=== PATIENT | female | born 1950 | race Caucasian/White ===

== ENCOUNTER 2017-01-04 06:36 | Inpatient (IN) | payer MEDICARE, MEDICAID ==
[~2017-01-04 06:36] MED LIST: Buffered Lidocaine 1% SYR 3ML* 3 ML/SYR SYRINGE INTRADERM ONE; Dexamethasone IV* 4 MG/ML 1 ML (4 MG) IV SLOW PU ONE; Famotidine IV* 10 MG/ML 2 ML (20 mg) IV ONE
[2017-01-04] MEDS ORDERED: Famotidine IV* 10 MG/ML 2 ML (20 mg) ONE (07:11)
[2017-01-04] MEDS ORDERED: Dexamethasone IV* 4 MG/ML 1 ML (4 MG) ONE (07:12)
[2017-01-04] MEDS ORDERED: ceFAZolin 2 GM PREMIX(*) 2 GM/50 ML BAG IVPB ONE (07:12)
[2017-01-04] MEDS ORDERED: Lidocain 1% EPI 1:100,000 * 30 ML MDV ONE (07:26)
[2017-01-04] MEDS ORDERED: Thrombin 5,000 UNITS* 1 APPLIC KIT - topical use - TOPICAL ONE (07:26)
[2017-01-04] MEDS ORDERED: Bacitracin IV* 50,000 UNITS INJ ONE (07:27)
[2017-01-04] MEDS ORDERED: fentaNYL* 50 MCG/ML 5 ML VIAL (250 MCG VIAL) ONE (07:30)
[2017-01-04] MEDS ORDERED: Midazolam* 1 MG/ML 5 ML VIAL (5 MG) ONE (07:30)
[2017-01-04] MEDS ORDERED: Lidocaine 2% PF * 5 ML VIAL ONE (07:31)
[2017-01-04] MEDS ORDERED: Rocuronium* 10 MG/ML VIAL ONE (07:31)
[2017-01-04] MEDS ORDERED: Propofol* 10 MG/ML 20 ML BTL IV PUSH ONE (07:31)
[2017-01-04] MEDS ORDERED: EPHEDrine (Pressors)* 50 MG/ML VIAL ONE (08:35)
[2017-01-04] MEDS ORDERED: Glycopyrrolate IV* 0.2 MG/ML 1 ML VIAL ONE (08:35)
[2017-01-04] MEDS ORDERED: fentaNYL* 50 MCG/ML 2 ML VIAL (100 MCG VIAL) ONE ×2 (09:01→12:00)
[2017-01-04] MEDS ORDERED: Ondansetron INJ* 2 MG/ML VIAL ONE (09:55)
[2017-01-04] MEDS ORDERED: ceFAZolin 1 GM in Dextrose (*) 2 GM/100 ML BAG IVPB ONE (11:45)
[2017-01-04] MEDS ORDERED: [UNRECOGNIZED DRUG - OTHER] PO PRN (12:17)
[2017-01-04] MEDS ORDERED: Phenylephrine IV* 40 MCG/ML 10 ML SYRINGE ONE (12:31)
[2017-01-04] MEDS ORDERED: HYDROmorphone* 1 MG/ML 1 ML SYR ONE (12:58)
[2017-01-04] MEDS: HYDROmorphone* 1 MG/ML 1 ML SYR IV PRN ×5 (12:59→13:46)
[2017-01-04] MEDS ORDERED: oxyCODONE/Acetamin 5/325 MG* TAB ONE (13:15)
[2017-01-04] MEDS: oxyCODONE/Acetamin 5/325 MG* TAB PO PRN ×2 (13:17→13:19)
[2017-01-04] MEDS: fentaNYL PATCH 25 MCG/HR TRANSDERM SCH (15:11)
--- NOTE | 2017-01-04 15:15 | RAD ---
INDICATION: Decompressive lumbar laminectomy with instrumentation. COMPARISON: Comparison is made with a prior MRI of the lumbar spine from February 13, 2016. Correlation is also made with a CT myelogram from December 01, 2016. TECHNIQUE: 3 cross table lateral portable views of the lumbar spine were obtained in the operating room. FINDINGS: The films demonstrate several surgical instruments located posteriorly and placement of pedicle screws bilaterally at the L1, L2, L3, L4 and L5 levels. IMPRESSION: INTRAOPERATIVE CONTROL FILMS.
[2017-01-04] MEDS: oxyCODONE TAB* 5 MG TAB PO PRN (16:52)
[2017-01-04] MEDS: Acetaminophen TAB* 325 MG PO PRN (16:52)
[2017-01-04] MEDS: HYDROmorphone* 2 MG/ML 1 ML SYR IV SLOW PU PRN ×2 (16:56→20:56)
[2017-01-04] MEDS ORDERED: DULoxetine DR CAP* 60 MG CAP.DR PO SCH (18:00)
[2017-01-04] MEDS: fentaNYL Patch Check Q Shift 1 NOTE SCH (18:39)
[2017-01-04] MEDS: Ondansetron INJ* 2 MG/ML VIAL IV PRN (20:56)
[2017-01-05] MEDS: oxyCODONE TAB* 5 MG TAB PO PRN ×5 (01:51→21:29)
[2017-01-05] MEDS: Ondansetron INJ* 2 MG/ML VIAL IV PRN (03:42)
[2017-01-05] MEDS: HYDROmorphone* 2 MG/ML 1 ML SYR IV SLOW PU PRN (03:42)
[2017-01-05 05:24] LABS: Hematocrit 30 % (35-47); Hemoglobin 9.6 g/dl (12.0-16.0); Mean Corpuscular HGB Conc 32 g/dl (31-36); Mean Corpuscular Hemoglobin 28 pg (27-31); Mean Corpuscular Volume 87 fL (80-97); Mean Platelet Volume 8 um3 (7.4-10.4); Red Blood Count 3.42 10^6/ul (4.0-5.4); Red Cell Distribution Width 14 % (10.5-15); White Blood Count 12.3 10^3/ul (3.5-10.8)
[2017-01-05] MEDS: Diazepam TAB(*) 5 MG PO PRN ×2 (06:00→16:59)
[2017-01-05] MEDS: fentaNYL Patch Check Q Shift 1 NOTE SCH ×2 (06:43→18:51)
--- NOTE | 2017-01-05 07:40 | PN ---
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
--- NOTE | 2017-01-05 08:04 | RAD ---
HISTORY: Postop spinal stenosis COMPARISONS: February 13, 2016 TECHNIQUE: Multiple contiguous axial CT scans were obtained of the lumbar spine without intravenous contrast, with coronal and sagittal multiplanar reformations. FINDINGS: SPINAL CANAL: Evaluation of the central canal is limited on CT technique, and by streak artifact from fusion hardware; however, there is no obvious canalicular mass or epidural hemorrhage. ALIGNMENT: There is a scoliotic curvature of the spine. There is right lateral subluxation of L3 on L4. This is similar to the previous examination. VERTEBRAL BODIES: There are extensive sclerotic active endplate changes at L2-L3 and L3-L4. There is endplate irregularity at these levels, which is presumably degenerative in nature. The patient is status post laminectomy at L3-L4, with fusion rods noted at L1, L2, L3, unilaterally at L4 on the left, and at L5. There is no appreciable hardware failure. The pedicle screws appear to be contained within the cortices of the pedicles of there respective levels. JOINTS: There is diffuse facet hypertrophic change MUSCULATURE: Unremarkable INTERVERTEBRAL DISCS: There is diffuse loss of intervertebral disc height throughout the spine. AXIAL IMAGES: Evaluation is somewhat limited by streak artifact. On axial images, there is moderate right neural foraminal narrowing at L3-L4. Laminectomy defect is noted at L3-L4 SOFT TISSUES: There is atherosclerosis of the abdominal aorta is also ectatic up to 3.1 cm. There is postsurgical change to the soft tissues. A surgical drain is noted. OTHER: None IMPRESSION: 1. STATUS POST LAMINECTOMY AND SPINAL FUSION. 2. THERE IS ASSOCIATED POSTSURGICAL CHANGE TO THE SOFT TISSUES. 3. ATHEROSCLEROSIS WITH ECTASIA OF THE ABDOMINAL AORTA.
[2017-01-05] MEDS: HYDROmorphone PCA* 20 MG/20 ML PCA.SYRING PCA SCH (08:41)
[2017-01-05] MEDS: Folic Acid TAB* 1 MG PO SCH (11:44)
[2017-01-05] MEDS ORDERED: Vitamin E CAP* 400 UNIT PO SCH (12:00)
[2017-01-05] MEDS ORDERED: Vitamin E CAP* 200 UNITS PO SCH (12:00)
[2017-01-05] MEDS ORDERED: Vitamin B Complex TAB PO SCH (12:08)
[2017-01-05] MEDS: Vitamin B Complex TAB PO SCH (12:55)
[2017-01-05] MEDS ORDERED: Nicotine Inhaler* 10 MG AMP INH PRN (20:00)
[2017-01-05] MEDS ORDERED: Mouth Piece, Nicotine* 1 EACH CARTRIDGE INH ONE (20:00)
[2017-01-05] MEDS: DULoxetine DR CAP* 60 MG CAP.DR PO SCH (21:30)
[2017-01-05] MEDS: Nicotine PATCH 21 MG/24 HR* PATCH TRANSDERM SCH (21:30)
[2017-01-06] MEDS ORDERED: NS 0.9% 1000 ML* 1,000 ML IVPB SCH (02:15)
[2017-01-06] MEDS: Acetaminophen TAB* 325 MG PO PRN ×2 (03:41→14:51)
[2017-01-06] MEDS: oxyCODONE TAB* 5 MG TAB PO PRN ×3 (03:41→14:51)
[2017-01-06 05:52] LABS: Hematocrit 29 % (35-47); Hemoglobin 9.3 g/dl (12.0-16.0); Mean Corpuscular HGB Conc 32 g/dl (31-36); Mean Corpuscular Hemoglobin 28 pg (27-31); Mean Corpuscular Volume 87 fL (80-97); Mean Platelet Volume 8 um3 (7.4-10.4); Red Blood Count 3.33 10^6/ul (4.0-5.4); Red Cell Distribution Width 14 % (10.5-15); White Blood Count 11.9 10^3/ul (3.5-10.8)
[2017-01-06] MEDS: fentaNYL Patch Check Q Shift 1 NOTE SCH ×2 (06:38→19:01)
[2017-01-06] MEDS: HYDROmorphone PCA* 20 MG/20 ML PCA.SYRING PCA SCH (07:30)
--- NOTE | 2017-01-06 08:53 | PN ---
Progress Note - Progress Note SOAP: Subjective: [This is a 66 year old female s/p decompressive lumbar laminectomy L3-4 and fusion L1-L5 with posterior instrumentation, POD #2. 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 She was up to sit in the chair yesterday for 40 minutes but reports buckling of the bilateral knees when she bears weight independently. She is frustrated because she feels like things are not being explained well to her. Denies numbness, tingling and pain in the lower extremities. ] Objective: [ Vital Signs: Temp Pulse Resp BP Pulse Ox 98.5 F 86 18 97/49 96 01/06/17 07:46 01/06/17 07:46 01/06/17 08:00 01/06/17 07:46 01/06/17 07:46 General: Alert and oriented. No distress. Neuro: Motor and sensory intact. Incision: KARL in place and draining. KARL drain output 01/04/17 01/04/17 01/04/17 13:45 18:12 18:45 Output, KARL #1 60 90 20 01/04/17 01/04/17 01/05/17 22:00 23:25 01:55 Output, KARL #1 80 30 45 01/05/17 01/05/17 01/05/17 03:43 05:41 10:00 Output, KARL #1 30 15 50 01/05/17 01/05/17 01/05/17 14:00 17:00 22:43 Output, KARL #1 30 30 15 01/06/17 01/06/17 01:46 05:59 Output, KARL #1 5 3 Laboratory Results - last 24 hr 01/06/17 05:30 WBC 11.9 H RBC 3.33 L Hgb 9.3 L Hct 29 L MCV 87 MCH 28 MCHC 32 RDW 14 Plt Count 180 MPV 8 Neut % (Auto) 78.2 Lymph % (Auto) 12.1 L [place] % (Auto) 8.7 Eos % (Auto) 0.6 Baso % (Auto) 0.4 Absolute Neuts (auto) 9.4 H Absolute Lymphs (auto) 1.4 Absolute Monos (auto) 1.0 H Absolute Eos (auto) 0.1 Absolute Basos (auto) 0 Absolute Nucleated RBC 0 Nucleated RBC % 0 ] Assessment: [Satisfactory post-op at this time. Pain is better controlled today. She will be going to rehab at either [facility] or [facility]; anticipated discharge 01/07/17.] Plan: [1. Remove laughlin catheter today. 2. [facility] evaluation. 3. PT and OT 4. Continue pain management.]
[2017-01-06] MEDS: Nicotine PATCH 21 MG/24 HR* PATCH TRANSDERM SCH (09:54)
[2017-01-06] MEDS: Diazepam TAB(*) 5 MG PO PRN (09:54)
[2017-01-06] MEDS ORDERED: BIOTIN PO SCH (12:00)
[2017-01-06] MEDS ORDERED: B COMPLEX PO SCH (12:00)
[2017-01-06] MEDS ORDERED: FOLIC ACI PO SCH (12:00)
[2017-01-06] MEDS: Vitamin B Complex TAB PO SCH (12:14)
[2017-01-06] MEDS: Folic Acid TAB* 1 MG PO SCH (12:14)
[2017-01-06] MEDS: DULoxetine DR CAP* 60 MG CAP.DR PO SCH (22:22)
[2017-01-06] MEDS: Nicotine Patch Removal NOTE PATCH OFF SCH (22:25)
[2017-01-07] MEDS: fentaNYL Patch Check Q Shift 1 NOTE SCH ×3 (06:57→19:08)
--- NOTE | 2017-01-07 07:35 | PN ---
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
[2017-01-07] MEDS: HYDROmorphone TAB* 2 MG PO PRN ×2 (09:47→13:36)
[2017-01-07] MEDS: SENNA PO SCH (09:47)
[2017-01-07] MEDS: Nicotine PATCH 21 MG/24 HR* PATCH TRANSDERM SCH (09:48)
[2017-01-07] MEDS: fentaNYL PATCH 25 MCG/HR TRANSDERM SCH (12:43)
[2017-01-07] MEDS: Folic Acid TAB* 1 MG PO SCH (12:46)
[2017-01-07] MEDS: Vitamin B Complex TAB PO SCH (12:46)
[2017-01-07] MEDS: Acetaminophen TAB* 325 MG PO PRN (13:36)
[2017-01-07] MEDS: Diazepam TAB(*) 5 MG PO PRN (15:40)
--- NOTE | 2017-01-07 16:24 | OP ---
OPERATIVE REPORT: DATE OF OPERATION: 01/04/17 DATE OF : 52 SURGEON: Donnell Mckeon MD. MID LEVEL BUSINESS ANALYST: ALPHONSO Ulrich. ANESTHESIA: General. PRE-OP DIAGNOSES: Lumbar degenerative disk disease with lumbar stenosis and instability L3-4. POST-OP DIAGNOSES: Lumbar degenerative disk disease with lumbar stenosis and instability L3-4. OPERATIVE PROCEDURE: Lumbar decompression L3-4 with instrument and fusion L1-L5 with surgical navig ation. DESCRIPTION OF PROCEDURE: After satisfactory anesthesia was obtained, the patient was placed on the operating table in prone position with a chest supported on the Saran frame and the back slightly flexed. The lumbar region was then clipped, prepped, and draped in the sterile manner for lumbar la minectomy and skin incision outlined from L1 to the sacrum. This incision was infiltrated with 1% X ylocaine with epinephrine after which it was turned down sharply to the level of the lumbar fascia. The fascia was divided along the spinous processes from L1-L5 and the paraspinal musculature stripp ed away from these posterior elements using the periosteal elevator and monopolar cautery. Preopera tively, the patient had undergone a volumetric CT scan of her thoracolumbar spine and this was loade d into the [employer] Surgical Navigation System and a treatment plan outlined. The initial p rosa was to register the navigation system superiorly for placement of pedicle screws into the L1, L2 and L3 vertebral bodies followed by reregistration and placement of screws at L4 and L5. The disse ction was carried down to the transverse processes were identified. The [employer] Registration arc wa s then brought into the field and secured to the S1 posterior elements. Registration was carried ou t in the superior aspect of the exposure and after excellent registration had been achieved, pedicle screws were placed at L1, L2 and L3 initially on the right side followed by placement of similar sc rews at L1, L2 and L3 on the left side. At L1, the screws were 5.5 in diameter and 40 mm in length. At L2, the screws were 5.5 mm in diameter and 50 mm in length as they were at L3. Following screw placement, registration was carried out once more inferiorly and screws were then placed in the L4 and L5 vertebral bodies. These screws were 6.5 mm in diameter screws and were 55 mm in length at L4 and 50 mm in length at L5. Following screw placement, a lateral radiograph was obtained which showe d good screw location. A decompressive laminectomy was then carried out at L3-4 by removing these s pinous processes of L3 and L4, to use as autograft for later fusion. The pathology at this level wa s a combination of thickened bone and ligament. This was carried superiorly. This decompression wa s carried superiorly until the dura was noted to be free. There was noted to be lateral recess sten osis bilaterally. This was decompressed with the combination of the Midas Edwin drill and Kerrison's. When performing the decompression on the right side, it was noted that the screw going into the ri ght L4 pedicle was somewhat medial in location though remained extradural. An AP radiograph was obt ained confirming that this was somewhat more medial placed than desired. This screw was then backed out under direct visualization with the dura remaining intact. Decision was made to leave this scr ew out and place a cross-link into the construct at this level which was done without difficulty. F ollowing the decompression, both L4 nerve roots were noted to be free in their course. Gelfoam was placed over the laminectomy defect after which rods were fashioned to fit into the screws from L1-L5 . The rods were secured into position after which a cross-link was connected that ran through the L 3-4 defect region. This cross-link was tightened down as well. Bone logs were then formed out of a llograft, autograft and bone putty. These were placed into the lateral gutter from L1-L5 with the t ransverse processes being slightly decorticated prior to placement of the bone log into each lateral gutter. The wound was then irrigated after which a drain was placed in the epidural space and tunn eled out towards the right side. The fascia was then reapproximated with 0 Vicryl sutures. The subc utaneous tissues closed with 3-0 Vicryl suture and the skin closed with skin clips The estimated bl ood loss was 200 cc and the final sponge, padding, and needle counts were correct. The patient was taken to the recovery room, extubated and in stable condition. [id number]/[facility] #: [id number]
[2017-01-07] MEDS: oxyCODONE TAB* 5 MG TAB PO PRN (20:54)
[2017-01-07] MEDS: DULoxetine DR CAP* 60 MG CAP.DR PO SCH (20:54)
[2017-01-07] MEDS: LORazepam TAB(*) 1 MG PO PRN (20:54)
[2017-01-07] MEDS: Acyclovir TAB* 400 MG PO SCH (20:54)
[2017-01-07] MEDS: Nicotine Patch Removal NOTE PATCH OFF SCH (20:59)
[2017-01-07] MEDS ORDERED: LORazepam TAB(*) 1 MG PO SCH (21:00)
[2017-01-08] MEDS: Acyclovir TAB* 400 MG PO SCH ×3 (05:40→21:07)
[2017-01-08] MEDS: oxyCODONE TAB* 5 MG TAB PO PRN ×4 (05:40→21:52)
[2017-01-08] MEDS: fentaNYL Patch Check Q Shift 1 NOTE SCH ×2 (06:44→19:14)
[2017-01-08] MEDS: Nicotine PATCH 21 MG/24 HR* PATCH TRANSDERM SCH (09:00)
[2017-01-08] MEDS: SENNA PO SCH (09:01)
--- NOTE | 2017-01-08 09:22 | PN ---
Progress Note - Progress Note SOAP: Subjective: []POD # 4 Doing better,still complains of constipation Has ambulated with PT Objective: []Neuro intact Drain has been removed Assessment: []Satis post op course Plan: [] Dulcolax suppository Rehab when stable
[2017-01-08] MEDS ORDERED: Bisacodyl SUPP* 10 MG SUPP PR PRN (09:49)
[2017-01-08] MEDS: Vitamin B Complex TAB PO SCH (12:22)
[2017-01-08] MEDS: Folic Acid TAB* 1 MG PO SCH (12:23)
[2017-01-08] MEDS: Diazepam TAB(*) 5 MG PO PRN (17:45)
[2017-01-08] MEDS: DULoxetine DR CAP* 60 MG CAP.DR PO SCH (21:07)
[2017-01-08] MEDS: Nicotine Patch Removal NOTE PATCH OFF SCH (21:07)
[2017-01-09] MEDS: oxyCODONE TAB* 5 MG TAB PO PRN ×5 (01:51→23:52)
[2017-01-09] MEDS: Acyclovir TAB* 400 MG PO SCH ×3 (05:52→22:28)
[2017-01-09] MEDS: fentaNYL Patch Check Q Shift 1 NOTE SCH ×2 (06:30→19:04)
[2017-01-09] MEDS: Nicotine PATCH 21 MG/24 HR* PATCH TRANSDERM SCH (08:44)
[2017-01-09] MEDS: Diazepam TAB(*) 5 MG PO PRN (08:47)
[2017-01-09] MEDS: SENNA PO SCH (08:47)
--- NOTE | 2017-01-09 09:14 | PN ---
Progress Note - Progress Note SOAP: Subjective: [] POD# 5 Improving Still complains of constipation No longer needing dilaudid Objective: []Neuro intact abd somewhat distended Assessment: [] Satis post op course Plan: []Mag citrate Dulcolax Dc in AM
[2017-01-09] MEDS: Folic Acid TAB* 1 MG PO SCH (11:25)
[2017-01-09] MEDS: Magnesium CITRATE* 300 ML BTL PO ONE ×2 (11:25→14:27)
[2017-01-09] MEDS: Vitamin B Complex TAB PO SCH (11:25)
[2017-01-09] MEDS: LORazepam TAB(*) 1 MG PO PRN (22:28)
[2017-01-09] MEDS: DULoxetine DR CAP* 60 MG CAP.DR PO SCH (22:28)
[2017-01-09] MEDS: Nicotine Patch Removal NOTE PATCH OFF SCH (22:31)
[2017-01-10] MEDS: Acyclovir TAB* 400 MG PO SCH (06:25)
[2017-01-10] MEDS: fentaNYL Patch Check Q Shift 1 NOTE SCH (06:55)
[2017-01-10 07:47] VITALS: BP 106/53
[2017-01-10] MEDS: oxyCODONE TAB* 5 MG TAB PO PRN (07:55)
[2017-01-10] MEDS: Nicotine PATCH 21 MG/24 HR* PATCH TRANSDERM SCH (07:55)
[2017-01-10] MEDS: SENNA PO SCH (07:56)
--- NOTE | 2017-01-10 07:57 | PN ---
Progress Note - Progress Note SOAP: Subjective: [S/p decompressive lumbar laminectomy L3-4 with instrumented fusion L1-5, POD # 6. She is feeling well this morning and complains of less pain. She is up out of bed with assistance of a walker and less buckling of the knees. She is eating and drinking without difficulty. She is voiding without difficulty. Lower extremity symptoms are improving. Denies headache, nausea and dizziness. ] Objective: [ Vital Signs: Temp Pulse Resp BP Pulse Ox 98.4 F 83 16 106/53 92 01/10/17 07:43 01/10/17 07:43 01/10/17 07:48 01/10/17 07:43 01/10/17 07:43 General: Alert and oriented. No distress. Neuro: Motor and sensory intact. Incision: Intact with adal. No swelling or infection. Dressing clean and dry. ] Assessment: [Satisfactory post-op course at this time. Pain is well controlled with oral pain medications.] Plan: [1. Discharge to [facility] for rehab today. 2. Discharge instructions discussed with the patient. ]
--- NOTE | 2017-01-10 08:08 | DS ---
Date of admission: 01/04/17 Date of discharge: 01/10/17 Discharge diagnosis: 1. Lumbar spinal stenosis Special procedures: 1. Decompressive lumbar laminectomy L3-4 with instrumented fusion L1-5. Hospital course: This 66 year old female was seen in office with signs and symptoms of lumbar stenosis. MRI was obtained and revealed severe stenosis at L3-4 with degenerative disc disease from L1-L5. She has received numerous lumbar epidural steroid injections over the past several years. This treatment had failed to provide relief more recently and she was referred to Dr. Mckeon. Surgical treatment was discussed and she was admitted for elective surgical intervention. On the day of admission, she was taken to surgery, where under general anesthesia a decompressive lumbar laminectomy L3-4 with instrumented fusion L1-5 operation was carried out. Post-operatively, she was experiencing significant pain related to the incision site. She was started on IV Dilaudid in addition to PO pain medication. She was also having difficulty ambulating secondary to weakness. She was evaluated and treated by occupational and physical therapy which helped her improve getting out of bed and ambulating. She now ambulates with assistance of a walker. IV Dilaudid has been discontinued and pain is well controlled with PO pain medications. She is eating and drinking without difficulty. She had an episode of constipation which is now resolved. She is discharged on post-op day 6 to [facility] for rehab. She will be seen in office in approximately 10 days for follow up and staple removal. Discharge medications: 1. Continue Acyclovir 5 day course. 2. Recommend Oxycodone 5mg 1-2 tabs PO every 4-6 hours as needed for pain.
== END 2017-01-10 10:25 | DRG 460 ==
LOC: INTOOBSV 06:36 → AA 06:36 → OBSVTOIN 12:45 → AA 12:45 → SSU 14:53
PROVIDERS: ADMIT Neurological Surgery; ATTEND Neurological Surgery
PROC: 01NB0ZZ Release Lumbar Nerve, Open Approach (ICD-10-PCS; 2017-01-04)
PROC: 0SG1071 Fusion of 2 or more Lumbar Vertebral Joints with Autologous Tissue Substitute, Posterior Approach, Posterior Column, Open Approach (ICD-10-PCS; principal; 2017-01-04 07:45)
DX: M48.06 Spinal stenosis, lumbar region (principal); F32.9 Major depressive disorder, single episode, unspecified; M51.36 Other intervertebral disc degeneration, lumbar region; K21.9 Gastro-esophageal reflux disease without esophagitis; F17.210 Nicotine dependence, cigarettes, uncomplicated; M53.2X6 Spinal instabilities, lumbar region; F41.9 Anxiety disorder, unspecified; M47.9 Spondylosis, unspecified; E78.2 Mixed hyperlipidemia; M81.0 Age-related osteoporosis without current pathological fracture; M41.9 Scoliosis, unspecified; R53.1 Weakness; K59.00 Constipation, unspecified; Z82.49 Family history of ischemic heart disease and other diseases of the circulatory system; Z82.0 Family history of epilepsy and other diseases of the nervous system; Z88.2 Allergy status to sulfonamides; Z91.040 Latex allergy status; Z88.8 Allergy status to other drugs, medicaments and biological substances; Z88.4 Allergy status to anesthetic agent; Z88.1 Allergy status to other antibiotic agents; Z91.048 Other nonmedicinal substance allergy status
CPT/HCPCS: 36415; 72100; 72131; 76000; 85025; 86850; 86900; 86901; 94760; A9270-GY; C1713; C1776; G8987-GO-CL; G8988-GO-CI; J0690; J1100; J1170; J2250; J2270; J2405; J2704; J3010

== ENCOUNTER → 2017-03-01 19:45 | Emergency (ER) | payer MEDICARE, MEDICAID ==
[2017-03-01 20:15] LABS: Hematocrit 36 % (35-47); Hemoglobin 11.7 g/dl (12.0-16.0); Mean Corpuscular HGB Conc 32 g/dl (31-36); Mean Corpuscular Hemoglobin 28 pg (27-31); Mean Corpuscular Volume 87 fL (80-97); Mean Platelet Volume 8 um3 (7.4-10.4); Red Blood Count 4.15 10^6/ul (4.0-5.4); Red Cell Distribution Width 15 % (10.5-15)
[2017-03-01 20:29] LABS: Albumin 3.6 g/dL (3.2-5.2); BUN/Creatinine Ratio 17.5 (8-20); Calcium 9.2 mg/dL (8.6-10.3); EGFR African American 92.6 (>60); Globulin 3.4 g/dL (2-4); Potassium 3.4 mmol/L (3.5-5.0); Total Bilirubin 0.5 mg/dL (0.2-1.0)
--- NOTE | 2017-03-01 21:30 | ED ---
I, Oh,Soohluis, scribed for Ariel Diop MD on 03/01/17 at 1959 . Lower Extremity - HPI Summary HPI Summary: This 66 y/o female presents to ED for LLE swelling and pain that has been gradually worsening since 3 days ago. Pt complains swelling is located from ankle up to LLE knee. She also reports bilat ankle pain since 1500 PM today. Pain took oxycodone, which she is on for pain control after recent laminectomy by Dr. Mckeon on 02/04/2017, did not relief the pain much. PMHx includes tardive dyskinesia, chronic low back pain, and right knee replacement. - History of Current Complaint Chief Complaint: EDExtremityLower Stated Complaint: LT LEG SWELLING/PAIN Time Seen by Provider: 03/01/17 19:46 Hx Obtained From: Patient, EMS, Medical Records Mechanism Of Injury: Unknown Onset/Duration: Still Present - 3 days ago Timing: Constant Location: Is Discrete @ - LLE ankle swelling. Bilat ankle pain Character Of Pain: Dull Associated Signs And Symptoms: Positive: Swelling Aggravating Factor(s): Nothing Alleviating Factor(s): Nothing - Allergies/Home Medications Allergies/Adverse Reactions: Allergies Allergy/AdvReac Type Severity Reaction Status Date / Time Cefuroxime [From Ceftin] Allergy Severe NAUSEA Verified 12/28/16 10:33 VOMITING DIARRHEA Latex Allergy Rash Verified 12/28/16 10:33 Sulfa Antibiotics Allergy per Verified 12/28/16 10:33 dar h&p metals Allergy Severe Rash And Uncoded 01/04/17 07:00 Itching ENVIRONMENTAL Allergy Sneezing/HAYFEVER Uncoded 12/28/16 10:33 SYMPTOMS PMH/Surg Hx/FS Hx/Imm Hx Endocrine/Hematology History: Denies: Hx Diabetes Cardiovascular History: Denies: Hx Hypertension, Hx Pacemaker/ICD Respiratory History: Denies: Hx Chronic Obstructive Pulmonary Disease (COPD) GI History: Reports: Hx Gastroesophageal Reflux Disease - USED TO TAKE DAILY MED NOW OFF AND ON, Hx Irritable Bowel - CAN BE TRIGGERED BY STRESS History: Denies: Hx Dialysis, Hx Renal Disease Musculoskeletal History: Reports: Hx Arthritis - HANDS AND KNEES, Hx Bursitis - RT SHOULDER, Other Musculoskeletal History - 2013- RIGHT TOTAL KNEE REPLACEMENT Denies: Hx Back Problems Sensory History: Reports: Hx Contacts or Glasses - GLASSES INST GIVEN Denies: Hx Hearing Aid Opthamlomology History: Reports: Hx Contacts or Glasses - GLASSES INST GIVEN Neurological History: Reports: Other Neuro Impairments/Disorders - TARDIVE DYSKINESIA- WEARS A PLASTIC UPPER PLATE IN MOUTH Denies: Hx Dementia, Hx Seizures Psychiatric History: Reports: Hx Anxiety - OK WITH DAILY MEDS, Hx Depression - OK WITH DAILY MEDS Denies: Hx Panic Disorder - Surgical History Surgery Procedure, Year, and Place: 1970 HYSTERECTOMY [place]. 2006 [facility] [place]/09 - Rt KNEE REPLACEMENT Hx Anesthesia Reactions: No - Family History Known Family History: Positive: Cardiac Disease Negative: Other - malignant hyperthermia or adverse anesthesia reaction - Social History Alcohol Use: None Hx Substance Use: No Substance Use Type: Reports: None Hx Tobacco Use: Yes Smoking Status (MU): Former Smoker Amount Used/How Often: 1/2 PPD X 6 MONTHS PRIOR- 1 PPD X 25 YEARS Have You Smoked in the Last Year: Yes Review of Systems Negative: Fever Positive: Edema - LLE ankle upto knee, Other - bilat ankle pain All Other Systems Reviewed And Are Negative: Yes Physical Exam Triage Information Reviewed: Yes Vital Signs On Initial Exam: Initial Vitals Temp Pulse Resp BP Pulse Ox 98 F 81 16 137/76 94 03/01/17 19:49 03/01/17 19:49 03/01/17 19:49 03/01/17 19:49 03/01/17 19:49 Vital Signs Reviewed: Yes Appearance: Positive: Well-Appearing, No Pain Distress Skin: Positive: Warm Head/Face: Positive: Normal Head/Face Inspection Eyes: Positive: TAYLOR ENT: Positive: Hearing grossly normal Neck: Positive: Supple Respiratory/Lung Sounds: Positive: Clear to Auscultation, Breath Sounds Present Cardiovascular: Positive: RRR Abdomen Description: Positive: Nontender, Soft Bowel Sounds: Positive: Present Musculoskeletal: Positive: Strength/ROM Intact, Other - mild lt lower leg swelling, no calf tendrness Neurological: Positive: Sensory/Motor Intact Psychiatric: Positive: Affect/Mood Appropriate Diagnostics - Vital Signs Vital Signs Temp Pulse Resp BP Pulse Ox 03/01/17 21:20 84 13 95 03/01/17 20:55 80 14 147/88 94 03/01/17 19:49 98 F 81 16 137/76 94 - Laboratory Lab Results: Lab Results 07/12/1303/01/17 03/01/17 Range/Units 20:05 20:05 20:05 WBC 6.0 (3.5-10.8) 10^3/ul RBC 4.15 (4.0-5.4) 10^6/ul Hgb 11.7 L (12.0-16.0) g/dl Hct 36 (35-47) % MCV 87 (80-97) fL MCH 28 (27-31) pg MCHC 32 (31-36) g/dl RDW 15 (10.5-15) % Plt Count 303 (150-450) 10^3/ul MPV 8 (7.4-10.4) um3 Neut % (Auto) 56.4 (38-83) % Lymph % (Auto) 31.0 (25-47) % [place] % (Auto) 8.1 (1-9) % Eos % (Auto) 2.9 (0-6) % Baso % (Auto) 1.6 (0-2) % Absolute Neuts (auto) 3.4 (1.5-7.7) 10^3/ul Absolute Lymphs (auto) 1.9 (1.0-4.8) 10^3/ul Absolute Monos (auto) 0.5 (0-0.8) 10^3/ul Absolute Eos (auto) 0.2 (0-0.6) 10^3/ul Absolute Basos (auto) 0.1 (0-0.2) 10^3/ul Absolute Nucleated RBC 0 10^3/ul Nucleated RBC % 0.1 INR (Anticoag Therapy) 0.85 L (0.89-1.11) Sodium 138 (133-145) mmol/L Potassium 3.4 L (3.5-5.0) mmol/L Chloride 104 (101-111) mmol/L Carbon Dioxide 29 (22-32) mmol/L Anion Gap 5 (2-11) mmol/L BUN 14 (6-24) mg/dL Creatinine 0.80 (0.51-0.95) mg/dL Est GFR ( Amer) 92.6 (>60) Est GFR (Non-Af Amer) 72.0 (>60) BUN/Creatinine Ratio 17.5 (8-20) Glucose 88 (70-100) mg/dL Calcium 9.2 (8.6-10.3) mg/dL Total Bilirubin 0.50 (0.2-1.0) mg/dL AST 27 (13-39) U/L ALT 18 (7-52) U/L Alkaline Phosphatase 101 (34-104) U/L Total Protein 7.0 (6.4-8.9) g/dL Albumin 3.6 (3.2-5.2) g/dL Globulin 3.4 (2-4) g/dL Albumin/Globulin Ratio 1.1 (1-3) Result Diagrams: 03/01/17 20:05 03/01/17 20:05 Lab Statement: Any lab studies that have been ordered have been reviewed, and results considered in the medical decision making process. - Additional Comments Diagnostic Additional Comments: Venous Doppler -- negative DVT Re-Evaluation - Re-Evaluation First Eval Change: Improved - results d/w pt Lower Extremity Course/Dx - Course Assessment/Plan: This 66 y/o female presents to ED for LLE ankle swelling since 3 days ago and bilat ankle pain since since today 1500 PM. PMHx includes chronic low back pain s/p recent laminectomy about a month ago, tradive dyskinesia, and right knee replacement. Blood work indicates INR of 0.85. Venous Doppler indicates negative DVT - Diagnoses Provider Diagnoses: Calf swelling Discharge - Discharge Plan Condition: Stable Disposition: HOME Patient Education Materials: Leg Edema (ED) Referrals: Ari Iglesias MD [Primary Care Provider] - 2 Days The documentation as recorded by the Norberto caballero Soohyun accurately reflects the service I personally performed and the decisions made by me, Ariel Diop MD.
[2017-03-02 00:07] VITALS: BP 125/66
--- NOTE | 2017-03-02 07:36 | RAD ---
INDICATION: Left lower extremity swelling and pain. COMPARISON: There are no prior studies available for comparison. TECHNIQUE: Multiple real-time, color flow and Doppler tracings of the left lower extremity were obtained. FINDINGS: The common femoral, femoral, profunda femoral and popliteal veins all demonstrate normal compressibility, augmentation with compression and phasic response with respiration. The posterior tibial and peroneal veins demonstrate normal compressibility and augmentation with compression. IMPRESSION: NO EVIDENCE FOR DEEP VENOUS THROMBOSIS.
== END | disposition home or self-care (01) ==
LOC: ED 19:45
DX: M79.89 Other specified soft tissue disorders (principal); K21.9 Gastro-esophageal reflux disease without esophagitis; F41.9 Anxiety disorder, unspecified; F32.9 Major depressive disorder, single episode, unspecified; Z87.891 Personal history of nicotine dependence; M54.5 Low back pain; G89.29 Other chronic pain
CPT/HCPCS: 36415; 80053; 85025; 85610; 99282

== ENCOUNTER 2017-08-13 20:00 | Emergency (ER) | payer MEDICARE, MEDICAID ==
[2017-08-13 20:11] VITALS: BP 129/65
--- NOTE | 2017-08-13 21:37 | RAD ---
INDICATION: Chronic back pain. Prior surgeries. COMPARISON: A 2016 TECHNIQUE: Routine PA, lateral, and oblique imaging was performed . FINDINGS: Bones: There are no acute bony findings. There is underlying osteoarthritis arthritic change with endplate sclerosis. There are postoperative changes with extensive posterior fusions extending from L1 through L5. The orthopedic fixation appears unchanged. There is no evidence of hardware failure. Alignment: Dextroscoliosis Disc spaces: Multilevel degenerative narrowing Soft tissues: There are no soft tissue abnormalities. IMPRESSION: POSTERIOR SPINAL FUSION L1-L5. NO EVIDENCE OF HARDWARE FAILURE OR OSTEOLYSIS UNDERLYING DEGENERATIVE CHANGES.
--- NOTE | 2017-08-13 23:22 | ED ---
Emily Bains Jason, scribed for Mike Gallagher on 08/13/17 at 2042 . Back Pain - HPI Summary HPI Summary: This patient is a 66 year old F presenting to [facility] with a chief complaint of lumbar back pain since 2009 today. The patient states that her back hardware from surgery has moved and is now experiencing pain, and is requesting an x- ray. The patient rates the pain 10/10 in severity. Symptoms aggravated by movement. Symptoms alleviated by nothing. - History of Current Complaint Chief Complaint: EDBackInjuryPain Stated Complaint: BACK PAIN Time Seen by Provider: 08/13/17 20:29 Hx Obtained From: Patient Onset/Duration: Gradual Onset, Lasting Hours - Since 2009 today, Still Present Timing: Constant Pain Intensity: 10 Pain Scale Used: 0-10 Numeric Aggravating Symptom(s): Movement Alleviating Symptom(s): Nothing - Allergies/Home Medications Allergies/Adverse Reactions: Allergies Allergy/AdvReac Type Severity Reaction Status Date / Time Cefuroxime [From Ceftin] Allergy Severe NAUSEA Verified 12/28/16 10:33 VOMITING DIARRHEA Latex Allergy Rash Verified 12/28/16 10:33 Sulfa Antibiotics Allergy per drParvez Verified 12/28/16 10:33 dar h&p metals Allergy Severe Rash And Uncoded 01/04/17 07:00 Itching ENVIRONMENTAL Allergy Sneezing/HAYFEVER Uncoded 12/28/16 10:33 SYMPTOMS PMH/Surg Hx/FS Hx/Imm Hx Previously Healthy: No Endocrine/Hematology History: Denies: Hx Diabetes Cardiovascular History: Denies: Hx Hypertension, Hx Pacemaker/ICD Respiratory History: Denies: Hx Chronic Obstructive Pulmonary Disease (COPD) GI History: Reports: Hx Gastroesophageal Reflux Disease - USED TO TAKE DAILY MED NOW OFF AND ON, Hx Irritable Bowel - CAN BE TRIGGERED BY STRESS History: Denies: Hx Dialysis, Hx Renal Disease Musculoskeletal History: Reports: Hx Arthritis - HANDS AND KNEES, Hx Bursitis - RT SHOULDER, Other Musculoskeletal History - 2014- RIGHT TOTAL KNEE REPLACEMENT Denies: Hx Back Problems Sensory History: Reports: Hx Contacts or Glasses - GLASSES INST GIVEN Denies: Hx Hearing Aid Opthamlomology History: Reports: Hx Contacts or Glasses - GLASSES INST GIVEN Neurological History: Reports: Other Neuro Impairments/Disorders - TARDIVE DYSKINESIA- WEARS A PLASTIC UPPER PLATE IN MOUTH Denies: Hx Dementia, Hx Seizures Psychiatric History: Reports: Hx Anxiety - OK WITH DAILY MEDS, Hx Depression - OK WITH DAILY MEDS Denies: Hx Panic Disorder - Surgical History Surgery Procedure, Year, and Place: 1970 [place]CTOMY [place] [facility] [place] Rt KNEE REPLACEMENT Hx Anesthesia Reactions: No Infectious Disease History: No Infectious Disease History: Denies: Traveled Outside the [place] in Last 30 Days - Family History Known Family History: Positive: Cardiac Disease, Other - negative malignant hyperthermia or adverse anesthesia reaction - Social History Alcohol Use: None Hx Substance Use: No Substance Use Type: Reports: None Hx Tobacco Use: Yes Smoking Status (MU): Former Smoker Amount Used/How Often: 1/2 PPD X 6 MONTHS PRIOR- 1 PPD X 25 YEARS Have You Smoked in the Last Year: Yes Review of Systems Negative: Fever Positive: Other - Lumbar back pain All Other Systems Reviewed And Are Negative: Yes Physical Exam - Summary Physical Exam Summary: Appearance: Patient is wheelchair bound, non-ambulatory, and Well appearing, no pain distress. Skin: warm, dry, reflects adequate perfusion Head/face: normal Eyes: EOMI, TAYLOR ENT: normal Neck: supple, non-tender Respiratory: CTA, breath sounds present Cardiovascular: RRR, pulses symmetrical Abdomen: non-tender, soft Bowel: present Musculoskeletal: Spasm of the lumbar spine. Neuro: normal, sensory motor intact, A&Ox3 Triage Information Reviewed: Yes Vital Signs On Initial Exam: Initial Vitals Temp Pulse Resp BP Pulse Ox 98.6 F 89 16 129/65 96 08/13/17 20:09 08/13/17 20:09 08/13/17 20:09 08/13/17 20:09 08/13/17 20:09 Vital Signs Reviewed: Yes - Zhou Coma Scale Coma Scale Total: 15 Diagnostics - Vital Signs Vital Signs Temp Pulse Resp BP Pulse Ox 08/13/17 20:09 98.6 F 89 16 129/65 96 - Laboratory Lab Statement: Any lab studies that have been ordered have been reviewed, and results considered in the medical decision making process. - Radiology Lumbar spine x-ray Radiology Interpretation Completed By: Radiologist - Lumbar Spine x-ray reveals , per radiologist, POSTERIOR SPINAL FUSION L1-L5. NO EVIDENCE OF HARDWARE FAILURE OR OSTEOLYSIS UNDERLYING DEGENERATIVE CHANGES. ED physician has reviewed this radiology report. Back Pain Course/Dx - Course Course Of Treatment: This patient is a 66 year old F presenting to [facility] with a chief complaint of lumbar back pain since 2009 today. Lumbar Spine x-ray reveals , per radiologist, POSTERIOR SPINAL FUSION L1-L5. NO EVIDENCE OF HARDWARE FAILURE OR OSTEOLYSIS UNDERLYING DEGENERATIVE CHANGES. Patient left AMA prior to x-ray review. - Diagnoses Differential Diagnosis/HQI/PQRI: Positive: Arthritis, Fracture, Herniated Disc, Strain, Sprain Provider Diagnoses: Back pain Discharge - Discharge Plan Condition: Guarded Disposition: AGAINST MEDICAL ADVICE Referrals: Ari Iglesias MD [Primary Care Provider] - The documentation as recorded by the Emily caballero Jason accurately reflects the service I personally performed and the decisions made by Elliott wright Emmanuel.
== END 2017-08-13 21:40 | disposition left against medical advice (07) ==
LOC: ED 20:00
DX: M47.816 Spondylosis without myelopathy or radiculopathy, lumbar region (principal); Z98.1 Arthrodesis status; Z87.891 Personal history of nicotine dependence; Z53.21 Procedure and treatment not carried out due to patient leaving prior to being seen by health care provider; Z88.3 Allergy status to other anti-infective agents; Z88.2 Allergy status to sulfonamides
CPT/HCPCS: 72110; 99282